=== PATIENT | female | born 1955 | race Caucasian/White ===

== ENCOUNTER 2020-07-03 04:33 | Observation (INO) | payer MEDICARE, OTHER, SELFPAY ==
[2020-07-03] VITALS (19 sets, daily range): BP systolic 120–162; BP diastolic 55–87; PULSE 101–115; RESP 14–24; TEMP 36.3–37.2; O2SAT 91–99; BMI 28.4
--- NOTE | 2020-07-03 | ECHO_ITS ---
Patient Info Name: Michael Kellogg Age: 65 years : 1955 Gender: Female Ht: 62 in Wt: 155 lbs BSA: 1.78 m2 BP: 149 / 87 mmHg Heart Rhythm: Sinus Rhythm, Tachycardia Technical Quality: Good Exam Date: 07/03/2020 10:31 AM Exam Location: [facility] [place] Patient Status: Inpatient Admit Date: 07/03/2020 Staff Ordering Physician: Aaron David MD Computer [employer]air Instructor: Parth Melgar RDCS Attending Provider: Remington Vargas MD Referring Physician: Joann RONDON; Exam Type: CA echo doppler color flow Study Info Indications I30.9 - Acute pericarditis, unspecified Complete two-dimensional, color flow and Doppler transthoracic echocardiogram is performed. Strain analysis performed. History/Risk Factors Chest pain; HTN, tachycardia, suspect pericarditis. Summary 1. Complete two-dimensional, color flow and Doppler transthoracic echocardiogram is performed. 2. Left ventricular wall thickness and systolic function are normal with no regional wall motion abnormalities with an estimated ejection fraction of 65-70%. Stage I diastolic dysfunction is present. The global longitudinal strain is mildly abnormal at-14% suggesting early systolic dysfunction. 3. No significant valve disease. 4. No pulmonary hypertension, estimated pulmonary arterial systolic pressure is 30 mmHg. 5. Small anterior echo-free space which may be a very small pericardial effusion or fat pad. Physiologic (trivial) amount of fluid posteriorly. 6. Sinus tachycardia. Left Ventricle Left ventricular wall thickness and systolic function are normal with no regional wall motion abnormalities with an estimated ejection fraction of 65-70%. Stage I diastolic dysfunction is present. The global longitudinal strain is mildly abnormal at-14% suggesting early systolic dysfunction. Left ventricular chamber dimension is normal. Left ventricular systolic function is normal, estimated at 65-70%. There is no increased left ventricular wall thickness. Left ventricular septal wall motion is normal. The left ventricular diastolic function is grade I diastolic dysfunction. E/e' 9.5 is mildly elevated. Right Ventricle Right ventricular chamber dimension is normal. Right ventricular systolic function is normal. Left Atria Left atrial chamber dimension is normal. Right Atria Right atrial chamber dimension is normal. Aortic Valve The aortic valve is trileaflet. There is no aortic valve sclerosis. There is no aortic valve stenosis. There is no aortic valve regurgitation. Pulmonic Valve The pulmonic valve is normal. There is no pulmonic valve stenosis. There is no pulmonic regurgitation. Mitral Valve The mitral valve has normal leaflets. There is no mitral valve stenosis. There is no mitral valve regurgitation. Tricuspid Valve The tricuspid valve leaflets are normal. There is no significant tricuspid valve stenosis. There is trace tricuspid valve regurgitation. No pulmonary hypertension, estimated pulmonary arterial systolic pressure is 30 mmHg. Pericardium/Pleural The pericardium appears normal. There is no pericardial effusion. Inferior Vena Cava Normal inferior vena cava with >50% collapse upon inspiration consistent with normal right atrial pressure, 5 mmHg. Aorta The aortic root size at the sinus of Valsalva is normal. The prox ascending aorta size is normal. Left Ventricular Outflow Tract
--- NOTE | ~2020-07-03 | CT_ITS ---
EXAMINATION: CTA brain carotid DATE: 07/03/2020 05:47 INDICATION: Headache. Chest pain. TECHNIQUE: Computed tomographic angiography (CTA) of the head was performed without and with 100 mL O mnipaque-350 intravenous contrast. CTA of the neck was performed with intravenous contrast. Automated exposure control and iterative reconstruction technique were employed. The dose-length product was 1 740.48 mGy-cm. Maximum intensity projection and volume rendered 3D-reconstructions were created by loretta carranza technologist on a separate workstation. COMPARISON: Neck CT 05/25/2017 FINDINGS: HEAD CTA: There is no intracranial hemorrhage, acute infarction, or abnormal intracranial mass lesion . The ventricles are normal in size. There is mild mucosal thickening in the ethmoid sinuses. There a re likely changes of left ocular lens replacement surgery. The mastoid air cells are normal. Left jeremiah tebral artery is dominant. There is no significant stenosis of basilar artery or the posterior cerebr al arteries. There is no significant stenosis of the intracranial internal carotid arteries or anteri or or middle cerebral arteries. Anterior communicating artery is normal. The posterior communicating arteries are normal. There is no aneurysm. NECK CTA: There is mild emphysema. There are no pathologically enlarged lymph nodes. There is no sign ificant stenosis of the vertebral arteries. There is mild plaque in the proximal internal carotid art eries. There is 0% stenosis of the proximal right internal carotid artery relative to normal distal a rtery lumen diameter (NASCET criteria). There is 0% stenosis of the proximal left internal carotid ar elba relative to normal distal artery lumen diameter. There is severe cervical spondylosis. IMPRESSION: 1. Normal brain. No aneurysm or significant intracranial arterial stenosis. 2. 0% stenosis of the proximal internal carotid arteries relative to normal distal artery lumen diame ters (NASCET criteria). Reviewed, dictated and finalized at location A. IMPRESSION: 1. Normal brain. No aneurysm or significant intracranial arterial stenosis. 2. 0% stenosis of the proximal internal carotid arteries relative to normal dis paco artery lumen diameters (NASCET criteria).
--- NOTE | ~2020-07-03 | CT_ITS ---
EXAMINATION: CTA chest PE protocol DATE: 07/03/2020 05:47 INDICATION: Dyspnea, chest pain TECHNIQUE: Computed tomography angiography (CTA) of the chest was performed with 100 mL Omnipaque-350 intravenous contrast timed to evaluate the pulmonary arteries. Coronal maximum intensity projection 3D-reconstructions were created by the technologist. Automated exposure control and iterative reconst ruction technique were employed. Exam dose: 598.47 mGy-cm total exam DLP. COMPARISON: 07/03/2020 portable AP chest FINDINGS: There is diagnostic contrast enhancement of the pulmonary arteries and no evidence of pulmo nary embolism. No thoracic aortic aneurysm or dissection. Heart size is normal. No pericardial or pleural effusion. Mild prominence of the prevascular, aortopulmonary window and paratracheal lymph nodes, likely reacti ve. There is minimal dependent left upper lobe atelectasis and infiltrate and/atelectasis at the base of the lingula and in both dependent and basilar lower lobes. Moderate emphysematous changes. Moderately large hiatal hernia. There is mild compression fracture deformity, likely chronic, at T2 with cupping of the superior vert ebral endplate. No suspicious osteolytic or osteoblastic lesions are noted. There is degenerative nemo nge of the thoracic and lumbar spine. IMPRESSION: No evidence of pulmonary embolism Infiltrate and/or atelectasis primarily in the lower lobes and the base of the lingula Moderately large hiatal hernia Reviewed, dictated and finalized at Location [facility]. Reviewed, dictated and finalized at location A.
--- NOTE | ~2020-07-03 | XR_ITS ---
XR chest 1V portable DATE: 07/03/2020 05:04 INDICATION: Chest pain and shortness of breath TECHNIQUE: Portable AP chest on 06/25/2020 at 0506 hours COMPARISON: 05/29/2017 portable AP chest at 0531 hours FINDINGS: Heart size is within normal limits. There is aortic calcification and mild aortic unfolding . No hilar or mediastinal enlargement. Moderately large hiatal hernia. Mild atelectasis at the lung bases. The lungs otherwise are clear of infiltrate or consolidation. 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 [place] devices overlie the right humeral head. Surgical clips, right upper quadrant, consistent with cholelithiasis IMPRESSION: Mild atelectasis at the lung bases. Moderately large hiatal hernia Reviewed, dictated and finalized at location A.
--- NOTE | 2020-07-03 04:39 | ECG_ITS ---
Measurements Intervals [place] Rate: 113 P: ME: 0 QRS: -17 QRSD: 92 T: 46 QT: 321 QTc: 441 Interpretive Statements SINUS TACHYCARDIA BORDERLINE R WAVE PROGRESSION, ANTERIOR LEADS CONSIDER INFERIOR INFARCT, AGE INDETERMINATE ABNORMAL ECG Electronically Signed On 07-03-2020 7:01:33 CDT by Bruce Ruiz D.O.
--- NOTE | 2020-07-03 04:45 | ED.CHESTPAIN ---
HPI - Chest Pain General Chief Complaint: Chest Pain Stated Complaint: CP, H/A Source: patient and EMS Mode of arrival: EMS Limitations: no limitations History of Present Illness HPI narrative: Patient is a 65-year-old female with a history of hypertension, hyperlipidemia who presents for evaluation of chest pain and headache pain. Chest pain started around 8 PM this evening while the patient was watching television, described as a pressure over the center of her chest without radiation to the back, shoulder, jaw. No associated diaphoresis or shortness of breath. Patient denies any history of heart attack or family history of coronary artery disease. She is a current heavy smoker. Patient also reports worsening headache over the course of the day, started this morning, described as sharp, over forehead with radiation into neck and shoulders. Patient has a history of migraine headaches, but states this is worse than typical migraine headaches. She denies any vision changes. She reports nausea without vomiting. She denies current weakness, numbness, or difficulty with speech. She denies fever, neck pain. No recent travel exposures. Related Data Home Medications Medication Instructions Recorded Confirmed Impram 1 tab-cap PO HS 07/03/20 aspirin 325 mg PO DAILY 07/03/20 [id number] 1 tablet PO Q4-6H PRN 07/03/20 [Excedrin Extra Strength] cyclobenzaprine 10 mg PO TID PRN 07/03/20 rizatriptan 0 mg PO .COMPLEX 07/03/20 Allergies Allergy/AdvReac Type Severity Reaction Status Date / Time lisinopril Allergy Unknown swelling Verified 07/03/20 04:44 in throat clindamycin AdvReac Severe Stopped Verified 07/03/20 04:44 Breathing Review of Systems Review of Systems: Narrative: CONSTITUTIONAL: Denies fever, chills, or sweats. EYES: Denies visual changes, redness, or discharge. ENT: Denies rhinorrhea, congestion, sore throat, or otalgia. CARDIOVASCULAR: Reports chest pain, denies leg edema RESPIRATORY: Denies cough or dyspnea. GASTROINTESTINAL: Denies abdominal pain, nausea, vomiting, or diarrhea. GENITOURINARY: Denies dysuria or hematuria. SKIN: Denies rash or itching. MUSCULOSKELETAL: Denies back pain, joint pain, or myalgia. NEUROLOGIC: Reports headache without numbness or weakness PMF Past Medical History Medical History (Updated 07/03/20 @ 05:38 by Leilani Maldonado MD) Angioedema Hyperlipidemia Hypertension Social History Social History (Updated 07/03/20 @ 04:48 by Leilani Maldonado MD) Smoking status: Current every day smoker Tobacco type: cigarettes Gender identity (if verbalized by the patient): Female Exam Narrative: Exam Narrative: GENERAL: Awake, alert, uncomfortable appearing HEAD: Normocephalic, atraumatic. EYES: 2+ PERRLA and EOMI. ENT: Nares clear, no rhinorrhea or epistaxis. Mucous membranes dry NECK: Supple. CHEST: No respiratory distress, breathing even and non labored, mild chest wall tenderness HEART: Tachycardic rate, sinus rhythm ABDOMEN:Non distended, non tender EXTREMITIES: Normal range of motion. No edema. SKIN: Warm, dry, no rash. NEURO:No focal deficits. Alert and oriented x3. Finger to nose intact bilaterally. EOMs intact without nystagmus. No facial droop/asymmetry noted bilaterally. Grimace intact. Intact sensation in face. Hearing intact bilaterally. Shoulder shrug intact. Strength 5/5 bilateral upper extremities. Strength 5/5 bilateral lower extremities. Reflexes 2+ patellar. Heel to braga intact bilaterally. Ambulatory exam deferred. Course Vital Signs Vital signs: Vital Signs Temperature 36.6 C 07/03/20 04:32 Pulse Rate 115 H 07/03/20 04:32 Respiratory Rate 22 H 07/03/20 04:32 Blood Pressure 160/72 H 07/03/20 04:32 Pulse Oximetry 99 07/03/20 04:32 Temperature 36.8 C 07/03/20 06:16 Pulse Rate 109 H 07/03/20 06:16 Respiratory Rate 19 07/03/20 06:16 Blood Pressure 138/70 07/03/20 06:16 Pulse Oximetry 97 1
[2020-07-03] MEDS: ONDANSETRON INJ 4 MG/2 ML VIAL IV PUSH (04:50)
[2020-07-03] MEDS: MORPHINE SULFATE (*CRX) 4 MG/ML INJ IV PUSH (04:50)
[2020-07-03 05:01] LABS: Basophils Absolute Auto 0.1 K/mm3 (0.0-0.1); Basophils Percent Auto 0.8 % (0.2-1.2); Eosinophils Absolute Auto 0.2 K/mm3 (0-0.3); Eosinophils Percent Auto 1.3 % (0-4.4); Hematocrit 37.8 % (37.0-47.0); Hemoglobin 12.4 g/dL (12.0-15.0); Immature Granulocyte Absolute 0.14 K/mm3 (0.00-0.031); Immature Granulocyte Percent A 0.9 % (0-0.5); Mean Corpuscular HGB Conc 32.8 g/dl (32-36); Mean Corpuscular Hemoglobin 31.6 pg (26-34); Mean Corpuscular Volume 96.2 fl (80-100); Mean Platelet Volume 9.6 fl (7.4-10.4); Monocytes Absolute Auto 0.8 K/mm3 (0.1-0.6); Monocytes Percent Auto 5.2 % (2.6-8.5); Neutrophils Absolute Auto 12.3 K/mm3 (1.3-6.7); Neutrophils Percent Auto 77.8 % (45.5-73.1); Platelet Count Result 419 k/mm3 (150-375); Red Blood Count 3.93 M/mm3 (4.2-5.4); Red Cell Distribution Width 16.1 % (11.5-14.5); White Blood Count 15.8 K/mm3 (4.5-10.0)
[2020-07-03] MEDS: SODIUM CHLORIDE 0.9% IV 1,000 ML 999 ML IV CONT (05:01)
[2020-07-03] MEDS: NITROGLYCERIN SL 0.4 MG TABLET SUBLINGUAL (05:05)
[2020-07-03 05:11] LABS: INR 0.9; Prothrombin Time 12.3 Seconds (11.1-14.7)
[2020-07-03 05:12] LABS: Partial Thromboplastin Time 31.3 SECONDS (22.3-36.8)
[2020-07-03] MEDS: MAGNESIUM SULF 2 GM/WATER 50ML 2 GM/50 ML BAG IVPB (05:12)
[2020-07-03 05:13] LABS: Anion Gap 9 mmol/L (8-16); Blood Urea Nitrogen 17 mg/dL (7-17); Calcium 10.3 mg/dL (8.4-10.2); Carbon Dioxide 25 mmol/L (22-30); Chloride 106 mmol/L (98-107); Estimated CRCL calculation 46 ml/min; Estimated Glomerular Filt Rate 56; Glucose 127 mg/dL (65-105); Potassium 3.3 mmol/L (3.4-5.0); Sodium 140 mmol/L (137-145)
[2020-07-03 05:25] LABS: Troponin I < 0.012 ng/mL (0.000-0.034)
[2020-07-03 05:27] LABS: NT Pro B Type Natriuretic Pept 131 PG/ML (5-100)
--- NOTE | 2020-07-03 05:28 | PC.NURSE ---
0.4 mg Nitro x2 given per order. Pt noted mild chest pain relief. 3rd dose held due to drop in blood pressure from 160s-120s systolic. Dr Maldonado notified.
--- NOTE | 2020-07-03 05:29 | PC.NURSE ---
Pt to CT at this time
--- NOTE | 2020-07-03 05:38 | ECG_ITS ---
Measurements Intervals [place] Rate: 111 P: 60 NH: 143 QRS: -17 QRSD: 88 T: 50 QT: 320 QTc: 436 Interpretive Statements SINUS TACHYCARDIA POSSIBLE LEFT ATRIAL ENLARGEMENT BORDERLINE R WAVE PROGRESSION, ANTERIOR LEADS CONSIDER INFERIOR INFARCT, AGE INDETERMINATE ABNORMAL ECG Electronically Signed On 07-03-2020 7:02:02 CDT by Bruce Ruiz D.O.
[2020-07-03 05:41] LABS: D Dimer 1.07 ug/mL (<0.48)
[2020-07-03] MEDS: POTASSIUM CHLORIDE 20 MEQ PACKET (FOR LIQUID) PO (06:51)
[2020-07-03 08:12] LABS: Troponin I < 0.012 ng/mL (0.000-0.034)
--- NOTE | 2020-07-03 09:57 | PM.CNCAR ---
Assessment and Plan Additional Plan This is a 65-year-old lady admitted for evaluation of chest pain and also a headache that began last evening. She has a mildly abnormal ECG with some subtle ST elevation or more accurately described as J-point elevation in the inferior leads. There is no evidence of an acute current of injury. Despite the fact that she has had the symptoms since 8:00 p.m. last night and has no ECG evidence of acute OR and negative troponins I do not believe there is any compelling reason to think that her symptoms are indicative of an acute coronary syndrome. Her ECG is not classic for this but my leading suspicion is that this lady has pericarditis based on the nature of her symptoms and the fact that she does have an audible pericardial friction rub on physical exam. I am going to empirically start her on some colchicine and have an echocardiogram done today for further evaluation of this. She does carry the diagnosis of rheumatoid arthritis and so this certainly could represent an extra articular manifestation of her RA. Aaron David MD [facility] History of Present Illness History of Present Illness Consult date/time: 07/03/20 09:57 Consult reason: chest pain Reason For Visit: Chest Pain/headache Narrative: This is a 65-year-old woman that I am seeing at the request of the hospitalist and the ER staff that saw her earlier this morning because of chest pain. The patient is not known to have any significant cardiac problems in the past and came in from home by ambulance with chest pain. She states that the symptoms began about 8:00 p.m. last night with mild pain in a pressure-like sensation in the center of the sternal area. At the beginning the patient's pain was also include accompanied by a significant headache. She states she has a diagnosis of migraines and she thought she was having a typical migraine but that it was unusually severe. The patient states that the symptoms were not particularly severe at that time and so she tried to relax at home and hope that they would resolve. She states that she actually went to sleep and was awakened at about 3:00 a.m. in the morning with the symptoms being worse. She states that that time she was very concerned about her health and an ambulance was called she was evaluated in brought to the emergency room. On route to the emergency room her electrocardiogram was felt by the EMS to be indicative of acute OR and they were going to activate the STEMI protocol. In the emergency room the ER physician did not agree with this impression of the ECG and actually called me and awakened me at about 5:00 a.m. to have me look at the EKG in my home. I did not see any significant current of injury and so she was admitted to the hospital. She did receive some morphine and GI cocktail her symptoms are not gone but they are a lot better. She does notice that her chest pain is worse if she takes a deep breath and also worse if she lies down and is improved if she sits forward. The 1st 2 troponin levels are normal. She offers no other significant or pertinent history at this time. Past medical history is remarkable for chronic ongoing cigarette smoking COPD as well as rheumatoid arthritis. Review of Systems Constitutional: Constitutional: Reports no additional constitutional complaints Eyes: Eyes: Reports no additional eye complaints ENT: Reports system reviewed and no additional complaints, except as documented Cardiovascular: Cardiovascular: Reports as per HPI Respiratory: Respiratory: Reports no additional respiratory complaints Gastrointestinal: Gastrointestinal: Reports no additional gastrointestinal complaints Musculoskeletal: Musculoskeletal: Reports arthralgias and Reports stiffness Neurologic: Reports system reviewed and no additional complaints, except as documented Endocrine: Endocrine: Reports no additional endocrine complaints Hematologic/Lymphatic: Hematologic/Lymphatic: Repo
[2020-07-03 11:07] LABS: Troponin I < 0.012 ng/mL (0.000-0.034)
--- NOTE | 2020-07-03 13:43 | ADMGEN ---
This patient, Michael Kellogg, was admitted to IMU Room 201-01 at 0752. Patient/family oriented to hospital policies and general routines including ID bracelet, bed and alarms, visiting hours, pain management, procedures, bathroom and other care routines, personal items, smoking policy, room service/diet, and visiting hours. Information on how to activate the Rapid Response Team has been discussed. Patient/Family are encouraged to report perceived risks to care and to ask questions if they do not understand what they are told or what they should do.
--- NOTE | 2020-07-03 15:35 | PM.IMHP ---
H&P: HPI History of Present Illness Date/Time: 07/03/20 15:35 Chief complaint: Chest Pain/headache Narrative: Michael Kellogg is a 65 year old female with history rheumatoid arthritis patient presented emergency department with a complaint of left-sided chest pain there were no radiation of the pain to left left arm or shoulder, no nausea or vomiting or diaphoresis, in the emergency depart patient was given nitroglycerin, morphine which did improve her chest pain, there were no acute changes on EKG the 3 sets of cardiac enzymes essentially normal unlikely acute coronary syndrome, patient was seen by Cardiology after examining the patient suspect with patient may have a pericarditis and cardiac ECHO is ordered as well as started the patient on colchicine will follow-up on cardiac echo and further recommendation to follow c/o headache patient does have history migraine headache she described this headaches different than normal migraine patient was give migraine cocktail emergency depart and this improved her symptom, currently patient states feeling much better denies any chest but does complaint left shoulder pain which she attributes to her RA, will apply Lidoderm patch, Review of Systems Review of Systems: All systems reviewed & are unremarkable except as noted in HPI and below PMFSH Past Medical History Medical History (Updated 07/03/20 @ 17:11 by Andrés Jaquez MD) Angioedema Hyperlipidemia Hypertension Family History Family History (Updated 07/03/20 @ 08:43 by Teresa Pool RN) Sibling Polycystic kidney disease Bladder cancer Mother Lung cancer Social History Social History (Updated 07/03/20 @ 04:48 by Leilani Maldonado MD) Smoking packs per day: 0.75 Smoking cigarettes per day: 15.0 Years smoked: 50 Smoking pack-years: 37.50 Smoking status: Current every day smoker Tobacco type: cigarettes Alcohol intake: never Substance use: never Gender identity (if verbalized by the patient): Female Spiritual care concerns: No Meds Home Medications and Allergies Home Medications Medication Instructions Recorded Confirmed Type bupropion HCl 150 mg PO QAM 07/03/20 07/03/20 History cyclobenzaprine 10 mg PO HS 07/03/20 07/03/20 History lamotrigine 150 mg PO QAM 07/03/20 07/03/20 History leflunomide 20 mg PO QAM 07/03/20 07/03/20 History methotrexate sodium 15 mg PO HS 07/03/20 07/03/20 History pantoprazole [Protonix] 40 mg PO QAM 07/03/20 07/03/20 History rizatriptan 10 mg PO Q2H PRN 07/03/20 07/03/20 History spironolactone 50 mg PO QAM 07/03/20 07/03/20 History Allergies Allergy/AdvReac Type Severity Reaction Status Date / Time lisinopril Allergy Unknown swelling Verified 07/03/20 04:44 in throat clindamycin AdvReac Severe Stopped Verified 07/03/20 04:44 Breathing Vital Signs Vital Signs - 24 hr 07/03/20 04:32 07/03/20 05:08 07/03/20 05:09 Temperature 97.9 F Pulse Rate 115 H 114 H Respiratory Rate 22 H 20 Blood Pressure 160/72 H 162/55 H Pulse Oximetry 99 96 95 07/03/20 05:22 07/03/20 06:16 07/03/20 07:43 Temperature 98.2 F Pulse Rate 110 H 109 H 112 H Respiratory Rate 24 H 19 18 Blood Pressure 120/59 L 138/70 146/80 H Pulse Oximetry 93 97 97 07/03/20 07:55 07/03/20 08:27 07/03/20 08:30 Temperature 97.4 F L Pulse Rate 109 H 101 H 101 H Respiratory Rate 14 18 Blood Pressure 149/87 H Pulse Oximetry 98 97 07/03/20 12:00 Temperature 97.9 F Pulse Rate 108 H Respiratory Rate 16 Blood Pressure 123/72 Pulse Oximetry 95 H&P: Results Labs Labs: Short CBC 07/03/20 Range/Units 04:54 WBC 15.8 H (4.5-10.0) K/mm3 Hgb 12.4 (12.0-15.0) g/dL Hct 37.8 (37.0-47.0) % Plt Count 419 H (150-375) k/mm3 BMP 07/03/20 04:54 Sodium 140 Potassium 3.3 L Chloride 106 Carbon Dioxide 25 BUN 17 Creatinine 1.00 Glucose 127 H Calcium 10.3 H Cardiac Enzymes 07/03/20 07/03/20 07/03/20 Range/Units 04:
[2020-07-03] MEDS: COLCHICINE 0.6 MG TABLET PO ×2 (17:30→20:54)
[2020-07-03] MEDS: buPROPion HCL XL (24 HR) 150 MG TABCR PO (17:30)
[2020-07-03] MEDS: lamoTRIgine 25 MG TABLET 50 MG PO (17:31)
[2020-07-03] MEDS: LEFLUNOMIDE 20 MG TABLET PO (17:32)
[2020-07-03] MEDS: lamoTRIgine 100 MG TABLET PO (17:32)
[2020-07-03] MEDS: PANTOPRAZOLE 40 MG TABLET PO (17:32)
[2020-07-03] MEDS: SPIRONOLACTONE 50 MG TABLET PO (17:33)
[2020-07-03] MEDS: CYCLOBENZAPRINE HCL 10 MG TABLET PO (20:54)
[2020-07-04] VITALS (9 sets, daily range): BP systolic 102–116; BP diastolic 60–61; PULSE 102–112; RESP 18–20; TEMP 35.9–37.1; O2SAT 90–95
[2020-07-04] MEDS: COLCHICINE 0.6 MG TABLET PO (09:33)
[2020-07-04] MEDS: lamoTRIgine 25 MG TABLET 50 MG PO (09:33)
[2020-07-04] MEDS: buPROPion HCL XL (24 HR) 150 MG TABCR PO (09:33)
[2020-07-04] MEDS: lamoTRIgine 100 MG TABLET PO (09:33)
[2020-07-04] MEDS: LIDOCAINE 5% PATCH 1 PATCH TRANSDERM (09:34)
[2020-07-04] MEDS: LEFLUNOMIDE 20 MG TABLET PO (09:34)
[2020-07-04] MEDS: PANTOPRAZOLE 40 MG TABLET PO (09:34)
[2020-07-04] MEDS: SPIRONOLACTONE 50 MG TABLET PO (09:34)
[2020-07-04 12:19] LABS: Anion Gap 7 mmol/L (8-16); Blood Urea Nitrogen 13 mg/dL (7-17); Calcium 9.9 mg/dL (8.4-10.2); Carbon Dioxide 27 mmol/L (22-30); Chloride 107 mmol/L (98-107); Estimated CRCL calculation 48 ml/min; Estimated Glomerular Filt Rate > 60; Glucose 101 mg/dL (65-105); Magnesium 2.1 mg/dL (1.6-2.3); Potassium 3.5 mmol/L (3.4-5.0); Sodium 141 mmol/L (137-145)
--- NOTE | 2020-07-04 13:00 | PM.PNCARD ---
Progress Note: A&P Assessment and Plan (1) Atypical chest pain: Code(s): R07.89 - Other chest pain Status: Acute Assessment and Plan: Likely pericarditis. Echocardiogram 07/03/2020:Left ventricular wall thickness and systolic function are normal with no regional wall motion abnormalities with an estimated ejection fraction of 65-70%. Stage I diastolic dysfunction is present. The global longitudinal strain is mildly abnormal at-14% suggesting early systolic dysfunction. No significant valve disease. No pulmonary hypertension, estimated pulmonary arterial systolic pressure is 30 mmHg. Small anterior echo-free space which may be a very small pericardial effusion or fat pad. Physiologic (trivial) amount of fluid posteriorly. Discomfort has improved with colchicine. Instructed that this discomfort will take some time to completely resolve. As echo is relatively unremarkable she can be discharged home. Additional Plan OK to discharge from cardiac standpoint. See discharge instructions for follow-up. Plan discussed with Dr Jan Fleming 07/04/2020 Subjective Date/time seen: 07/04/20 13:00 Interval history: Follow-up for: Chest pain atypical-probable pericarditis, headache Date of service: 07/04/2020 Subjective: Still has chest discomfort. Now has a sharp stabbing discomfort in the left upper chest. This occurs with coughing and deep inspiration. She also continues to have the pressure sensation in the lower mid sternum. Denied shortness of breath unless she is having discomfort. No lightheadedness or palpitations. Review of Systems Constitutional: Constitutional: Denies chills and Denies fever(s) Eyes: Eyes: Denies blurry vision ENT: Reports system reviewed and no additional complaints, except as documented, Reports Normal hearing present, Denies dizziness, Reports headache(s) and Denies epistaxis Cardiovascular: Cardiovascular: Reports chest pain (Pleuritic) Respiratory: Respiratory: Denies dyspnea on exertion Gastrointestinal: Gastrointestinal: Reports no additional gastrointestinal complaints, Denies abdominal pain, Denies nausea and Denies vomiting Genitourinary: Genitourinary: Denies hematuria Musculoskeletal: Musculoskeletal: Reports arthralgias and Reports stiffness Neurologic: Reports Normal hearing present, Denies dizziness and Reports headache(s) (Chronic) Psychiatric: Psychiatric: Denies anxiety Endocrine: Endocrine: Denies fatigue and Denies flushing Hematologic/Lymphatic: Hematologic/Lymphatic: Denies easy bleeding and Denies easy bruising Allergic/Immunologic: Allergic/Immunologic: Denies throat swelling and Denies wheezing Exam Const: Other: Pleasant female laying comfortably in bed. No distress. HENMT: Head: normal to inspection and atraumatic Mouth: Yes moist mucous membranes Eyes: General: appearance normal, both eyes and all related structures Neck: Neck: trachea midline, supple and no JVD Resp: Effort & Inspection: normal respiratory effort Auscultation: clear to auscultation bilaterally (Breath sounds tubular) Cardio: Jugular venous distension: no JVD Rate: regular rate Rhythm: regular rhythm Heart sounds: no rubs Peripheral pulses: Peripheral pulses 2+ throughout GI: Inspection: normal to inspection GI Palp: Yes Soft to palpation Auscultation: normal bowel sounds Skin: General skin exam: normal color Neuro: Cranial nerves: Yes Equal, round and reactive pupils present Cognition (Neuro): normal cognition Extrem: General: no clubbing, cyanosis or edema Psych: Appearance: grossly normal Speech and movement: Normal speech and movement present Affect: normal affect Attitude: cooperative Thought process: Normal thought process present Thought content: Yes Normal thought content present Insight: Good insight present (Psych) Judgement: Good judgement present (Psych) Objective Data Vital Signs Vital Signs: Vital Signs - 24 hr 06/07
--- NOTE | 2020-07-04 14:58 | PM.DS ---
DS: Admitting Diagnosis Admitting Diagnosis Admitting Diagnosis: Chest Pain/headache DS: Discharge Diagnosis Discharge Diagnosis (1) Atypical chest pain: Code(s): R07.89 - Other chest pain Status: Acute Assessment and Plan: Michael Kellogg is a 65 year old female with history rheumatoid arthritis patient presented emergency department with a complaint of left-sided chest pain there were no radiation of the pain to left left arm or shoulder, no nausea or vomiting or diaphoresis, in the emergency depart patient was given nitroglycerin, morphine which did improve her chest pain, there were no acute changes on EKG the 3 sets of cardiac enzymes essentially normal unlikely acute coronary syndrome, patient was seen by Cardiology after examining the patient suspect with patient may have a pericarditis and cardiac ECHO is ordered as well as started the patient on colchicine will follow-up on cardiac echo and further recommendation to follow c/o headache patient does have history migraine headache she described this headaches different than normal migraine patient was give migraine cocktail emergency depart and this improved her symptom, currently patient states feeling much better denies any chest but does complaint left shoulder pain which she attributes to her RA, will apply Lidoderm patch, (2) Headache: Code(s): R51.9 - Headache, unspecified Status: Acute Assessment and Plan: most likely migraine headache, patient's symptoms have resolved (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 Status: Acute Assessment and Plan: will resume patient's home medication, with RA patient does have a high risk pericarditis, will follow-up cardiac echo and further recommendation to follow DS: Summary Hospital Course Reason for hospitalization: Chief complaint: Chest Pain/headache Narrative: Michael Kellogg is a 65 year old female with history rheumatoid arthritis patient presented emergency department with a complaint of left-sided chest pain there were no radiation of the pain to left left arm or shoulder, no nausea or vomiting or diaphoresis, in the emergency depart patient was given nitroglycerin, morphine which did improve her chest pain, there were no acute changes on EKG the 3 sets of cardiac enzymes essentially normal unlikely acute coronary syndrome, patient was seen by Cardiology after examining the patient suspect with patient may have a pericarditis and cardiac ECHO is ordered as well as started the patient on colchicine will follow-up on cardiac echo and further recommendation to follow c/o headache patient does have history migraine headache she described this headaches different than normal migraine patient was give migraine cocktail emergency depart and this improved her symptom, currently patient states feeling much better denies any chest but does complaint left shoulder pain which she attributes to her RA, will apply Lidoderm patch, Hospital Course: Michael Kellogg is a 65 year old female with history rheumatoid arthritis patient presented emergency department with a complaint of left-sided chest pain there were no radiation of the pain to left left arm or shoulder, no nausea or vomiting or diaphoresis, in the emergency depart patient was given nitroglycerin, morphine which did improve her chest pain, there were no acute changes on EKG the 3 sets of cardiac enzymes essentially normal unlikely acute coronary syndrome, patient was seen by Cardiology after examining the patient suspect with patient may have a pericarditis and cardiac ECHO is ordered as well as started the patient on colchicine will follow-up on cardiac echo and further recommendation to follow c/o headache patient does have history migraine headache she described this headaches different than normal migraine patient was give migraine cocktail emergency depart and this improved her symptom, currently lian
== END 2020-07-04 15:56 | disposition home or self-care (01) ==
LOC: ANHED 07:20 → ANHIMU 08:44
PROVIDERS: Nurse Practitioner Adult Health; Admitting Provider Family Medicine; Emergency Provider Emergency Medicine; PCP Internal Medicine; Visit Provider Family Medicine
DX: R07.89 Other chest pain (principal); I01.1 Acute rheumatic endocarditis; M06.9 Rheumatoid arthritis, unspecified; I10 Essential (primary) hypertension; E78.5 Hyperlipidemia, unspecified; Z79.82 Long term (current) use of aspirin; F17.210 Nicotine dependence, cigarettes, uncomplicated
CPT/HCPCS: 36415; 70496; 70498; 71045; 71275; 80048; 83735; 83880; 84484; 85025; 85380; 85610; 85730; 93005; 93306; 96365; 96367; 96375; 99285; A9270; G0378; J0131; J1100; J2270; J2405; J3475; J7030; Q9967

== ENCOUNTER 2020-07-23 11:11 | Emergency (ER) | payer MEDICARE, OTHER, SELFPAY ==
[2020-07-23] VITALS (7 sets, daily range): BP systolic 100–133; BP diastolic 63–75; PULSE 115–129; RESP 14–23; TEMP 37.5; O2SAT 92–96
--- NOTE | ~2020-07-23 | XR_ITS ---
EXAMINATION: XR chest 2V EXAM DATE: 07/23/2020 12:26 INDICATION: Midline chest tightness and pressure. TECHNIQUE: Frontal and lateral projections of the chest obtained and reviewed. Comparison is made to prior examination from 07/03/2020. FINDINGS: Moderate chronic hyperinflation. The lungs are clear. There are no pleural effusions. Th e cardiomediastinal silhouette is within normal limits. There is no pneumothorax suspected. Right-s ided rotator cuff repair anchors. Mild bony degenerative changes. Probable small to moderate-sized ga stroesophageal hiatal hernia. There is aortic arteriosclerosis. IMPRESSION: No acute cardiopulmonary findings. Reviewed, dictated and finalized at location [employer]
--- NOTE | 2020-07-23 11:30 | ECG_ITS ---
Measurements Intervals [place] Rate: 127 P: 66 MD: 153 QRS: 53 QRSD: 90 T: 69 QT: 335 QTc: 488 Interpretive Statements SINUS TACHYCARDIA NONSPECIFIC T-WAVE ABNORMALITY- HIGH LAT LEADS ABNORMAL ECG Electronically Signed On 07-23-2020 11:57:31 [employer] by Bruce Ruiz D.O.
[2020-07-23 12:01] LABS: Basophils Absolute Auto 0.1 K/mm3 (0.0-0.1); Basophils Percent Auto 0.7 % (0.2-1.2); Eosinophils Absolute Auto 0.2 K/mm3 (0-0.3); Eosinophils Percent Auto 1.5 % (0-4.4); Hematocrit 38.1 % (37.0-47.0); Hemoglobin 12.5 g/dL (12.0-15.0); Immature Granulocyte Absolute 0.06 K/mm3 (0.00-0.031); Immature Granulocyte Percent A 0.5 % (0-0.5); Lymphocytes Absolute Auto 1.61 K/mm3 (0.9-3.2); Lymphocytes Percent Auto 12.1 % (18.3-44.2); Mean Corpuscular HGB Conc 32.8 g/dl (32-36); Mean Corpuscular Hemoglobin 31.2 pg (26-34); Mean Platelet Volume 10.8 fl (7.4-10.4); Monocytes Absolute Auto 0.9 K/mm3 (0.1-0.6); Monocytes Percent Auto 6.5 % (2.6-8.5); Neutrophils Absolute Auto 10.5 K/mm3 (1.3-6.7); Neutrophils Percent Auto 78.7 % (45.5-73.1); Platelet Count Result 318 k/mm3 (150-375); Red Blood Count 4.01 M/mm3 (4.2-5.4); Red Cell Distribution Width 16.9 % (11.5-14.5); White Blood Count 13.3 K/mm3 (4.5-10.0)
[2020-07-23] MEDS: ASPIRIN 81 MG CHEWABLE TABLET 324 MG PO (12:08)
[2020-07-23 12:11] LABS: INR 0.9; Partial Thromboplastin Time 27.6 SECONDS (22.3-36.8); Prothrombin Time 13.2 Seconds (11.1-14.7)
[2020-07-23 12:13] LABS: Anion Gap 7 mmol/L (8-16); Blood Urea Nitrogen 17 mg/dL (7-17); Calcium 10.1 mg/dL (8.4-10.2); Carbon Dioxide 26 mmol/L (22-30); Chloride 105 mmol/L (98-107); Estimated CRCL calculation 45 ml/min; Estimated Glomerular Filt Rate 56; Glucose 110 mg/dL (65-105); Potassium 4.3 mmol/L (3.4-5.0); Sodium 138 mmol/L (137-145)
[2020-07-23 12:25] LABS: Troponin I < 0.012 ng/mL (0.000-0.034)
[2020-07-23 15:16] LABS: Troponin I < 0.012 ng/mL (0.000-0.034)
--- NOTE | 2020-07-23 15:18 | ED.GENADULT ---
HPI - General Adult General Chief complaint: Chest Pain Stated complaint: chest pain Time Seen by Provider: 07/23/20 12:28 Source: patient Mode of arrival: ambulatory Limitations: no limitations History of Present Illness HPI narrative: Patient presents for evaluation of intermittent chest discomfort that is in her center chest and at times radiates up into her shoulder. Patient states that she was admitted on 07-04-20 and diagnosed with pericarditis and evaluated by cardiology and started on colchicine and daily full-strength aspirin. She reports that she has been feeling improved but beginning yesterday she noted some discomfort to her center chest and left chest area that worsens with movement and palpation of the chest. patient states that she has an appointment with cardiology on Wednesday but since she noticed more chest irritation sensation today she came to emergency department to be evaluated. Patient denies sharp persistent chest pain that radiates into her shoulder, diaphoresis, shortness of breath, nausea, vomiting or lethargy. Patient states that she is take cardiac at baseline. Patient has not reached out to cardiology regarding her symptoms. Related Data Home Medications Medication Instructions Recorded Confirmed bupropion HCl 150 mg PO QAM 07/03/20 07/03/20 cyclobenzaprine 10 mg PO HS 07/03/20 07/03/20 lamotrigine 150 mg PO QAM 07/03/20 07/03/20 leflunomide 20 mg PO QAM 07/03/20 07/03/20 methotrexate sodium 15 mg PO HS 07/03/20 07/03/20 pantoprazole [Protonix] 40 mg PO QAM 07/03/20 07/03/20 rizatriptan 10 mg PO Q2H PRN 07/03/20 07/03/20 spironolactone 50 mg PO QAM 07/03/20 07/03/20 Allergies Allergy/AdvReac Type Severity Reaction Status Date / Time lisinopril Allergy Unknown swelling Verified 07/23/20 12:09 in throat clindamycin AdvReac Severe Stopped Verified 07/23/20 12:09 Breathing Review of Systems Review of Systems: Narrative: CONSTITUTIONAL: Denies fever, chills, or sweats. EYES: Denies visual changes, redness, or discharge. ENT: Denies rhinorrhea, congestion, sore throat, or otalgia. CARDIOVASCULAR: Reports chest discomfort, denies palpitations, or edema. RESPIRATORY: Denies cough or dyspnea. GASTROINTESTINAL: Denies abdominal pain, nausea, vomiting, or diarrhea. GENITOURINARY: Denies dysuria or hematuria. SKIN: Denies rash or itching. MUSCULOSKELETAL: Denies back pain, joint pain, or myalgia. NEUROLOGIC: Denies headache, numbness, dizziness, or weakness. PSYCHIATRIC: Denies anxiety or depression. [facility] Past Medical History Medical History (Updated 07/23/20 @ 15:23 by Pradeep Bansal PA-C) Angioedema Hyperlipidemia Hypertension Family History Family History (Updated 07/03/20 @ 08:43 by Teresa Pool RN) Sibling Polycystic kidney disease Bladder cancer Mother Lung cancer Social History Social History (Updated 07/03/20 @ 04:48 by Leilani Maldonado MD) Smoking packs per day: 0.75 Smoking cigarettes per day: 15.0 Years smoked: 50 Smoking pack-years: 37.50 Smoking status: Current every day smoker Tobacco type: cigarettes Alcohol intake: never Substance use: never Gender identity (if verbalized by the patient): Female Spiritual care concerns: No Exam Narrative: Exam Narrative: GENERAL: Well-appearing, well-nourished, and in no acute distress. HEAD: Normocephalic, atraumatic. EYES: PERRLA and EOMI. NECK: Supple. No adenopathy or masses. CHEST: Discomfort elicited with percussion of chest wall to center and left chest wall. Pain worsens with leaning forward and movement. Clear to auscultation. No respiratory distress. No wheezes rales or rhonchi HEART: Regular rate and rhythm. Normal peripheral cap refill EXTREMITIES: Normal range of motion. No edema. SKIN: Warm, dry, no rash. NEURO: No focal deficits. Alert and oriented x3. PSYCH: Normal mood and affect. Course Vital Signs Vital signs: Vital Signs Temperature 99.5 F 07/23/20 11:37 Pu
== END 2020-07-23 16:12 | disposition home or self-care (01) ==
PROVIDERS: Emergency Provider Emergency Medicine; PCP Internal Medicine
DX: R07.89 Other chest pain (principal); E78.5 Hyperlipidemia, unspecified; I10 Essential (primary) hypertension; R00.0 Tachycardia, unspecified; R94.31 Abnormal electrocardiogram [ECG] [EKG]
CPT/HCPCS: 36415; 71046; 80048; 84484; 85025; 85610; 85730; 93005; 99284; A9270

== ENCOUNTER 2021-01-02 14:25 | Outpatient (CLI) | payer MEDICARE, SELFPAY | END 2021-01-02 14:26 | disposition home or self-care (01) | LOC: ANHCOVIDVC 14:25 | PROVIDERS: PCP Internal Medicine | DX: Z23 Encounter for immunization (principal) | CPT/HCPCS: 0001A; 91300 ==

== ENCOUNTER 2021-01-23 14:17 | Outpatient (CLI) | payer MEDICARE, SELFPAY | END 2021-01-23 14:18 | disposition home or self-care (01) | LOC: ANHCOVIDVC 14:17 | PROVIDERS: PCP Internal Medicine | DX: Z23 Encounter for immunization (principal) | CPT/HCPCS: 0002A; 91300 ==